=== PATIENT | male | born 1955 | race American Indian/Alaskan Native ===

== ENCOUNTER 2016-11-21 12:29 | Outpatient (CLI) | payer BC ==
--- NOTE | 2016-11-21 13:23 | XRay Report ---
Lumbar spine 4 views: History: Acute back pain. Findings: Mild scoliosis of lumbar spine with convexity to right. Normal height of vertebral bodies. Decrease in height of L3-4, L4-5 and L5-S1 interspace. Sclerotic adjacent articular surfaces with peripheral osteophytes suggestive of degenerative changes. No fracture. No soft tissue calcification. Impression: Moderate degenerative changes lumbar spine.
== END 2016-11-21 12:30 | disposition home or self-care (01) ==
LOC: SPVIMAG 12:29
PROVIDERS: ATTEND Internal Medicine
DX: M47.896 Other spondylosis, lumbar region (principal); M41.86 Other forms of scoliosis, lumbar region; M25.78 Osteophyte, vertebrae
CPT/HCPCS: 72110